=== PATIENT | female | born 1960 | race Caucasian/White ===

== ENCOUNTER 2019-09-08 12:56 | Emergency (ER) | payer OTHER ==
[~2019-09-08] VITALS: Ht 154.9 cm; Wt 62.6 kg
--- NOTE | 2019-09-08 12:58 | NUR ---
came in for body pain x 2 weeks 10/10 pain scale, to ER bed 9, hooked to monitor, changed to hosp gown, warm blanket provided, awaiting MD muñoz
--- NOTE | 2019-09-08 14:31 | NUR ---
Dr Phillips at bedside
[2019-09-08 14:47] LABS: BASOPHILS % (AUTO) 0.7 % (0.0-2.0); HEMATOCRIT 38 % (33-45); HEMOGLOBIN 12.8 g/dL (11.5-14.8); LYMPHOCYTES # (AUTO) 1.8 /CMM (0.8-4.8); LYMPHOCYTES % (AUTO) 26.8 % (20.0-44.0); MEAN CORPUSCULAR HGB CONC 33 g/dl (31.0-36.0); MEAN CORPUSCULAR VOLUME 92 fL (82-100); MONOCYTES # (AUTO) 0.7 /CMM (0.1-1.30); MONOCYTES % (AUTO) 9.8 % (2.0-12.0); NEUTROPHILS # (AUTO) 4.2 /CMM (1.8-8.9); NEUTROPHILS % (AUTO) 61.7 % (43.0-81.0); PLATELET COUNT (AUTO) 256 /CMM (150-450); RED BLOOD CELL COUNT(AUTO) 4.15 MIL/uL (4.0-5.2); WHITE BLOOD COUNT (AUTO) 6.8 K/uL (4.3-11.0)
[2019-09-08] MEDS ORDERED: ONDANSETRON HCL/PF 4 MG/2 ML VIAL ONE (14:58)
[2019-09-08] MEDS ORDERED: MORPHINE SULFATE INJ 4 MG/ML DISP.SYRIN ONE (14:58)
[2019-09-08] MEDS ORDERED: ONDANSETRON HCL/PF 4 MG/2 ML VIAL IVP ONE (15:00)
[2019-09-08] MEDS ORDERED: MORPHINE SULFATE INJ 2 MG/ML DISP.SYRIN IV ONE (15:00)
--- NOTE | 2019-09-08 15:00 | NUR ---
patient wheeled out via wheelchair to ct scan
[2019-09-08 15:04] LABS: ALBUMIN 3.4 g/dL (3.4-5.0); BILIRUBIN,DIRECT 0.1 mg/dL (0.0-0.2); BILIRUBIN,TOTAL 0.3 mg/dL (0.2-1.0); CALCIUM, SERUM 8.9 mg/dL (8.5-10.1); CREATININE 0.7 mg/dL (0.6-1.3); POTASSIUM 4.3 mmol/L (3.5-5.1); TOTAL PROTEIN, SERUM 6.6 g/dL (6.4-8.2)
--- NOTE | 2019-09-08 15:12 | NUR ---
patient refused iv peripheral line insertion.
--- NOTE | 2019-09-08 15:14 | NUR ---
urine sample collected and sent to lab
[2019-09-08 15:45] LABS: APPEARANCE,URINE Slightly Cloudy (CLEAR); BILIRUBIN,URINE Negative (NEGATIVE); BLOOD, URINE Trace-intact Ery/uL (NEGATIVE); COLOR,URINE Yellow (YELLOW); KETONES,URINE Negative (NEGATIVE); LEUKOCYTE ESTERASE ,URINE Trace (NEGATIVE); NITRITE, URINE Negative (NEGATIVE); PH,URINE 7.5 (5.0-8.0); PROTEIN,URINE Negative (NEGATIVE); UGLUCOSE Negative (NEGATIVE); UROBILINOGEN,URINE 0.2 EU/dL (0.2)
--- NOTE | 2019-09-08 16:31 | NUR ---
Patient discharged to home in stable condition. Written and verbal after care instructions given. Patient verbalizes understanding of instruction.
[2019-09-08 16:32] VITALS: BP 118/68
[2019-09-08 16:55] LABS: BACTERIA,URINE Few /HPF (None Seen); SQUAMOUS EPITHELIAL CELL,UR Few /HPF (None Seen)
== END 2019-09-08 16:33 | disposition home or self-care (01) ==
LOC: ER 12:59
DX: M25.511 Pain in right shoulder (principal); M54.10 Radiculopathy, site unspecified; M79.18 Myalgia, other site; M54.2 Cervicalgia; G20 Parkinson's disease
CPT/HCPCS: 36415; 70450-TC; 71045-TC; 72125-TC; 80048-TC; 80076-TC; 81000-TC; 85025-TC; J2270; J2405

== ENCOUNTER 2020-11-26 17:55 | Emergency (ER) | payer OTHER ==
[~2020-11-26] VITALS: Ht 154.9 cm; Wt 53.1 kg
--- NOTE | 2020-11-26 18:19 | NUR ---
BIBS FROM HOME TO ER BED 7. AAOX4. NOT IN RESP DISRTRESS. AMBULATORY WITH A CANE. CAME IN FOR ABD PAIN. PT RATES HER PAIN 10/10. WASA T THE BEDSIDE FOR EVAL. ORDERS RECEIVED, NOTED AND CARRIED OUT.
[2020-11-26 18:28] LABS: BASOPHILS % (AUTO) 0.3 % (0.0-2.0); EOSINOPHILS % (AUTO) 0.5 % (0.0-6.0); HEMATOCRIT 39 % (33-45); HEMOGLOBIN 12.9 g/dL (11.5-14.8); LYMPHOCYTES # (AUTO) 1.2 K/uL (0.8-4.8); LYMPHOCYTES % (AUTO) 18.7 % (20.0-44.0); MEAN CORPUSCULAR HGB CONC 34 g/dl (31.0-36.0); MEAN CORPUSCULAR VOLUME 92 fL (82-100); MONOCYTES # (AUTO) 0.7 K/uL (0.1-1.30); MONOCYTES % (AUTO) 12.1 % (2.0-12.0); NEUTROPHILS # (AUTO) 4.2 K/uL (1.8-8.9); NEUTROPHILS % (AUTO) 68.4 % (43.0-81.0); PLATELET COUNT (AUTO) 230 K/uL (150-450); RED BLOOD CELL COUNT(AUTO) 4.19 MIL/uL (4.0-5.2); WHITE BLOOD COUNT (AUTO) 6.1 K/uL (4.3-11.0)
[2020-11-26] MEDS ORDERED: ONDANSETRON HCL/PF 4 MG/2 ML VIAL IVP ONE (19:00)
[2020-11-26] MEDS ORDERED: MORPHINE SULFATE INJ 2 MG/ML DISP.SYRIN IV ONE ×2 (19:00→21:30)
[2020-11-26 19:02] LABS: BILIRUBIN,URINE SMALL (NEGATIVE); COLOR,URINE ORANGE (YELLOW); LEUKOCYTE ESTERASE ,URINE Negative (NEGATIVE); NITRITE, URINE Negative (NEGATIVE); PH,URINE 5.5 (5.0-8.0); PROTEIN,URINE 30 mg/dl (NEGATIVE); UGLUCOSE 100 MG/DL mg/dL (NEGATIVE); UROBILINOGEN,URINE 0.2 EU/dL (0.2)
[2020-11-26 19:03] LABS: BACTERIA,URINE Rare /HPF (None Seen); SQUAMOUS EPITHELIAL CELL,UR Few /HPF (None Seen); WBC,URINE NONE SEEN /HPF (0-3)
[2020-11-26] MEDS ORDERED: ONDANSETRON HCL/PF 4 MG/2 ML VIAL ONE (19:03)
[2020-11-26] MEDS ORDERED: MORPHINE SULFATE INJ 4 MG/ML DISP.SYRIN ONE (19:03)
[2020-11-26 19:05] LABS: CALCIUM, SERUM 8.9 mg/dL (8.5-10.1); CREATININE 0.6 mg/dL (0.6-1.3); POTASSIUM 3.7 mmol/L (3.5-5.1)
[2020-11-26 19:11] LABS: BILIRUBIN,DIRECT 0.1 mg/dL (0.0-0.2); BILIRUBIN,TOTAL 0.3 mg/dL (0.2-1.0); TOTAL PROTEIN, SERUM 6.7 g/dL (6.4-8.2)
[2020-11-26] MEDS ORDERED: LEVO500T90 PO (20:24)
[2020-11-26] MEDS ORDERED: METR500T PO (20:24)
[2020-11-26] MEDS ORDERED: HYDR-4303 PO (20:24)
--- NOTE | 2020-11-26 21:00 | NUR ---
Patient discharged to home in stable condition. Written and verbal after care instructions given. Patient verbalizes understanding of instruction.IV removed. Catheter intact and site benign. Pressure and 4x4 applied to site. No bleeding noted. Pt ambulatory with a steady gait
[2020-11-26 22:49] VITALS: BP 108/64
== END 2020-11-26 22:50 | disposition home or self-care (01) ==
LOC: ER 17:55
DX: K52.9 Noninfective gastroenteritis and colitis, unspecified (principal); K62.5 Hemorrhage of anus and rectum; G20 Parkinson's disease; Z79.899 Other long term (current) drug therapy
CPT/HCPCS: 36415; 74176; 80048; 80076; 81001; 83690; 85025; 96374; 96375; 99284; J2270; J2405

== ENCOUNTER 2021-08-09 08:59 | Emergency (ER) | payer OTHER ==
[~2021-08-09] VITALS: Ht 154.9 cm; Wt 54.9 kg
[~2021-08-09 08:59] MED LIST: HYDR-4303 PO; LEVO500T90 PO; METR500T PO
--- NOTE | 2021-08-09 09:13 | NUR ---
BIBS C/O INCREASED ANXIETY X6MOS "CAN'T HANDLE IT ANYMORE, I NEED SOMETHING TO SLEEP." VITALS ARE WITHIN NORMAL LIMITS. NO RESP DISTRESS NOTED. AWAITING MD MURO.
[2021-08-09 09:14] VITALS: BP 118/73
[2021-08-09] MEDS ORDERED: LORAZEPAM 1 MG TABLET PO ONE (09:30)
[2021-08-09] MEDS ORDERED: LORAZEPAM 1 MG TABLET ONE (09:35)
[2021-08-09] MEDS ORDERED: LORA-258 PO ×2 (09:59→10:17)
== END 2021-08-09 10:29 | disposition home or self-care (01) ==
LOC: ER 09:00
DX: F41.9 Anxiety disorder, unspecified (principal); F43.9 Reaction to severe stress, unspecified; Z87.39 Personal history of other diseases of the musculoskeletal system and connective tissue; Z79.899 Other long term (current) drug therapy

== ENCOUNTER 2022-12-30 20:14 | Emergency (ER) | payer OTHER ==
[~2022-12-30] VITALS: Ht 154.9 cm; Wt 58.5 kg
[~2022-12-30 20:14] MED LIST changes: +LORA-258 PO
[2022-12-30 21:53] LABS: BASOPHILS % (AUTO) 0.3 % (0.0-2.0); EOSINOPHILS # (AUTO) 0.1 K/uL (0.0-0.7); EOSINOPHILS % (AUTO) 1.1 % (0.0-6.0); HEMATOCRIT 39 % (33-45); LYMPHOCYTES % (AUTO) 19.6 % (20.0-44.0); MEAN CORPUSCULAR HEMOGLOBIN 30 PG (26.0-33.0); MEAN CORPUSCULAR HGB CONC 34 g/dl (31.0-36.0); MEAN CORPUSCULAR VOLUME 91 fL (82-100); MONOCYTES # (AUTO) 0.9 K/uL (0.1-1.30); MONOCYTES % (AUTO) 17.8 % (2.0-12.0); NEUTROPHILS % (AUTO) 61.2 % (43.0-81.0); PLATELET COUNT (AUTO) 205 K/uL (150-450); RED BLOOD CELL COUNT(AUTO) 4.27 MIL/uL (4.0-5.2); RED CELL DISTRIBUTION WIDTH 13.8 % (11.5-15.0); WHITE BLOOD COUNT (AUTO) 4.9 K/uL (4.3-11.0)
[2022-12-30 22:07] LABS: APPEARANCE,URINE CLEAR (CLEAR); BILIRUBIN,URINE NEGATIVE (NEGATIVE); BLOOD, URINE 1+ Ery/uL (NEGATIVE); COLOR,URINE YELLOW (YELLOW); KETONES,URINE NEGATIVE (NEGATIVE); LEUKOCYTE ESTERASE ,URINE NEGATIVE (NEGATIVE); NITRITE, URINE POSITIVE (NEGATIVE); PH,URINE 6.5 (5.0-8.0); PROTEIN,URINE NEGATIVE (NEGATIVE); UGLUCOSE NEGATIVE (NEGATIVE); UROBILINOGEN,URINE 0.2 EU/dL (0.2)
[2022-12-30 22:23] LABS: ALBUMIN 3.9 g/dL (3.4-5.0); BILIRUBIN,DIRECT 0.1 mg/dL (0.0-0.2); BILIRUBIN,TOTAL 0.3 mg/dL (0.2-1.0); CALCIUM, SERUM 9.2 mg/dL (8.5-10.1); CREATININE 0.6 mg/dL (0.6-1.3); POTASSIUM 4.3 mmol/L (3.5-5.1); TOTAL PROTEIN, SERUM 7.6 g/dL (6.4-8.2)
[2022-12-30 22:23] LABS: ADD URINE CULTURE YES; BACTERIA,URINE 1+ /HPF (None Seen); WBC,URINE 0-2 /HPF (0-3)
[2022-12-30] MEDS ORDERED: KETOROLAC TROMETHAMINE INJ 30 MG/ML VIAL IV ONE (22:30)
[2022-12-30] MEDS ORDERED: IV NS 0.9% 1,000 ML IV ONE (22:30)
[2022-12-30 22:31] LABS: EOSINOPHILS % (MANUAL) 2 % (0-4); LYMPHOCYTES % (MANUAL) 20 % (16-48); MONOCYTES % (MANUAL) 17 % (0-11.0); MYELOCYTES % 1 % (0-0); NEUTROPHILS % (MANUAL) 60 (42-76)
[2022-12-30 22:33] LABS: PLATELET ESTIMATE ADEQUATE
[2022-12-30] MEDS ORDERED: KETOROLAC TROMETHAMINE INJ 30 MG/ML VIAL ONE (22:38)
[2022-12-30] MEDS ORDERED: LORAZEPAM INJ 2 MG/ML VIAL ONE (22:44)
[2022-12-30] MEDS ORDERED: LORAZEPAM INJ 2 MG/ML VIAL IV ONE (23:00)
[2022-12-30] MEDS ORDERED: KETO10TA2 PO (23:48)
[2022-12-30] MEDS ORDERED: SULF1TAB48 PO (23:48)
[2022-12-31 00:23] VITALS: BP 128/77; TEMP 98; O2SAT 98
== END 2022-12-31 00:23 | disposition home or self-care (01) ==
LOC: EDUNIT# 20:14 → ER 20:22
DX: N39.0 Urinary tract infection, site not specified (principal); R10.9 Unspecified abdominal pain; G20 Parkinson's disease; F32.A Depression, unspecified; F41.9 Anxiety disorder, unspecified; Z60.2 Problems related to living alone
CPT/HCPCS: 99285; 74176; 96374; 96361; 96375; 85025; 80048; 87086; 80076; 81001; 36415; 85007; J2060; J1885; J7030

== ENCOUNTER 2023-08-13 02:50 | Emergency (ER) | payer OTHER ==
[~2023-08-13] VITALS: Ht 154.9 cm; Wt 58.5 kg
[~2023-08-13 02:50] MED LIST changes: +KETO10TA2 PO; +SULF1TAB48 PO
[2023-08-13 02:54] VITALS: TEMP 98
[2023-08-13] MEDS: IV NS 0.9% 1,000 ML BAG IV ONE (03:45)
[2023-08-13 03:55] LABS: BASOPHILS # (AUTO) 0.1 K/uL (0.0-0.2); BASOPHILS % (AUTO) 1.1 % (0.0-2.0); EOSINOPHILS # (AUTO) 0.2 K/uL (0.0-0.7); EOSINOPHILS % (AUTO) 2.9 % (0.0-6.0); HEMATOCRIT 42 % (33-45); HEMOGLOBIN 14.1 g/dL (11.5-14.8); LYMPHOCYTES # (AUTO) 1.4 K/uL (0.8-4.8); LYMPHOCYTES % (AUTO) 26.7 % (20.0-44.0); MEAN CORPUSCULAR HEMOGLOBIN 31 PG (26.0-33.0); MEAN CORPUSCULAR HGB CONC 34 g/dl (31.0-36.0); MEAN CORPUSCULAR VOLUME 92 fL (82-100); MONOCYTES # (AUTO) 0.5 K/uL (0.1-1.30); MONOCYTES % (AUTO) 9.7 % (2.0-12.0); NEUTROPHILS # (AUTO) 3.2 K/uL (1.8-8.9); NEUTROPHILS % (AUTO) 59.6 % (43.0-81.0); PLATELET COUNT (AUTO) 270 K/uL (150-450); RED BLOOD CELL COUNT(AUTO) 4.56 MIL/uL (4.0-5.2); RED CELL DISTRIBUTION WIDTH 14.4 % (11.5-15.0); WHITE BLOOD COUNT (AUTO) 5.4 K/uL (4.3-11.0)
[2023-08-13] MEDS ORDERED: LORAZEPAM INJ 2 MG/ML VIAL ONE (03:55)
[2023-08-13 03:57] LABS: APPEARANCE,URINE CLEAR (CLEAR); BILIRUBIN,URINE NEGATIVE (NEGATIVE); COLOR,URINE YELLOW (YELLOW); KETONES,URINE NEGATIVE (NEGATIVE); LEUKOCYTE ESTERASE ,URINE NEGATIVE (NEGATIVE); NITRITE, URINE NEGATIVE (NEGATIVE); PH,URINE 6.5 (5.0-8.0); PROTEIN,URINE NEGATIVE (NEGATIVE); UGLUCOSE NEGATIVE (NEGATIVE); UROBILINOGEN,URINE 0.2 EU/dL (0.2)
[2023-08-13 03:59] LABS: BLOOD, URINE NEGATIVE Ery/uL (NEGATIVE)
[2023-08-13 04:06] LABS: AMPHETAMINE, URINE NEGATIVE (NEGATIVE); BARBITURATE, URINE NEGATIVE (NEGATIVE); BENZODIAZEPINE, URINE NEGATIVE (NEGATIVE); CANNABINOID, URINE NEGATIVE (NEGATIVE); COCCAINE, URINE NEGATIVE (NEGATIVE); OPIATE, URINE NEGATIVE (NEGATIVE); PHENCYCLIDINE SCREEN,URINE NEGATIVE (NEGATIVE)
[2023-08-13] MEDS: LORAZEPAM INJ 2 MG/ML VIAL IVP ONE (04:06)
[2023-08-13 04:10] LABS: ALANINE AMINOTRANSFERASE 18 U/L (12-78); ALBUMIN 3.6 g/dL (3.4-5.0); ALCOHOL, BLOOD < 3 mg/dL (0-10); ALKALINE PHOSPHATASE 105 U/L (46-116); ASPARTATE AMINOTRANSFERASE 21 U/L (15-37); BILIRUBIN,DIRECT 0.1 mg/dL (0.0-0.2); BILIRUBIN,TOTAL 0.2 mg/dL (0.2-1.0); CALCIUM, SERUM 8.9 mg/dL (8.5-10.1); CARBON DIOXIDE 28 mmol/L (21-32); CHLORIDE 105 mmol/L (98-107); CREATININE 0.8 mg/dL (0.6-1.3); GLUCOSE 105 mg/dL (74-106); POTASSIUM 3.8 mmol/L (3.5-5.1); SODIUM SERUM 141 mmol/L (136-145); TOTAL PROTEIN, SERUM 7.2 g/dL (6.4-8.2); UREA NITROGEN, BLOOD 18 mg/dL (7-18)
[2023-08-13 04:11] LABS: ACETAMINOPHEN <10 ug/ml (10-30); SALICYLATE 0.9 mg/dL (2.8-20.0)
[2023-08-13 04:45] VITALS: BP 141/56; O2SAT 99
[2023-08-13] MEDS ORDERED: DIPH25CA83 PO ×2 (06:07→06:19)
== END 2023-08-13 06:54 | disposition home or self-care (01) ==
LOC: ER 03:13
DX: F41.9 Anxiety disorder, unspecified (principal); G47.09 Other insomnia; F32.A Depression, unspecified; G20.A1 Parkinson's disease without dyskinesia, without mention of fluctuations; Z60.2 Problems related to living alone; Z20.822 Contact with and (suspected) exposure to COVID-19
CPT/HCPCS: 99283; 96374; 96361; 85025; 80048; 80076; 81003; 36415; 87426; 80143; 80320; 80307; J2060; J7030; G0480

== ENCOUNTER 2025-01-07 20:50 | Emergency (ER) | payer OTHER ==
[~2025-01-07] VITALS: Ht 154.9 cm; Wt 54.4 kg
[~2025-01-07 20:50] MED LIST changes: +DIPH25CA83 PO
[2025-01-07] MEDS ORDERED: HYDROCODONE/APAP 5/325MG TABLET ONE (22:15)
[2025-01-07] MEDS ORDERED: HYDR-4303 PO (22:17)
[2025-01-07] MEDS: HYDROCODONE/APAP 5/325MG TABLET PO ONE (22:18)
[2025-01-07 23:00] VITALS: BP 110/67; TEMP 98; O2SAT 96
== END 2025-01-07 23:01 | disposition home or self-care (01) ==
LOC: ER 20:53
DX: S60.212A Contusion of left wrist, initial encounter (principal); M25.839 Other specified joint disorders, unspecified wrist; G20.A1 Parkinson's disease without dyskinesia, without mention of fluctuations; F41.9 Anxiety disorder, unspecified; F32.A Depression, unspecified; Z60.2 Problems related to living alone; W22.8XXA Striking against or struck by other objects, initial encounter; Y93.89 Activity, other specified; Y92.89 Other specified places as the place of occurrence of the external cause; Y99.8 Other external cause status
CPT/HCPCS: 73110